=== PATIENT | female | born 1995 | race Caucasian/White ===

== ENCOUNTER 2017-07-05 00:19 | Emergency (ER) | payer OTHER ==
[~2017-07-05] VITALS: Ht 167.6 cm; Wt 61.0 kg
[~2017-07-05 00:19] MED LIST: IBUP-2070 PO; PREN1TAB80 PO
[2017-07-05] MEDS ORDERED: PERTUSS(ACELL),DIPH,TET VAC/PF 0.5 ML VIAL IM ONE (02:30)
[2017-07-05] MEDS ORDERED: KETOROLAC TROMETHAMINE 30 MG/ML VIAL IVP ONE (02:30)
[2017-07-05 03:15] VITALS: BP 134/71
[2017-07-05] MEDS ORDERED: BACITRACIN 0.9 GM PACKET OINTMENT TP ONE (03:15)
== END 2017-07-05 03:27 | disposition home or self-care (01) ==
LOC: EMS 00:20
DX: S46.912A Strain of unspecified muscle, fascia and tendon at shoulder and upper arm level, left arm, initial encounter (principal); V49.9XXA Car occupant (driver) (passenger) injured in unspecified traffic accident, initial encounter; Y93.89 Activity, other specified; Y92.488 Other paved roadways as the place of occurrence of the external cause; Y99.8 Other external cause status
CPT/HCPCS: 29280; 71010; 90471; 90715; 96374; 99284; J1885